=== PATIENT | female | born 1975 | race American Indian/Alaskan Native ===

== ENCOUNTER 2017-02-14 19:49 | Emergency (ER) | payer SELFPAY ==
[2017-02-14 20:09] VITALS: BP 127/84
[2017-02-14 22:57] LABS: Bilirubin,Urine NEG (Negative); Blood,Urine LG (Negative); Ketones,Urine NEG (Negative); Leukocyte Esterase,Urine NEG (Negative); Mucus,Urine FEW /HPF; Nitrite,Urine NEG (Negative); Protein,Urine <15 mg/dL mg/dL (Negative)
--- NOTE | 2017-02-18 14:57 | ED Elopement Review ---
ED Pt Elopement review - Results review Lab results: Laboratory Tests 02/14/17 22:00 Urine Color Yellow Urine Turbidity Clear Urine pH 5.0 Ur Specific [place] 1.012 Urine Protein <15 mg/dl Urine Glucose (UA) Neg Urine Ketones Neg Urine Blood Lg Urine Nitrite Neg Ur Reducing Substances Not Reportable Urine Bilirubin Neg Urine Ictotest Not Reportable Urine Urobilinogen 2.0 Ur Leukocyte Esterase Neg Urine WBC (Auto) 8.0 H Urine RBC (Auto) 47.0 U Epithel Cells (Auto) 2.0 Hyaline Casts 1 Urine Mucus Few Urine HCG, Qual Negative - Call Back decision Pt Call Back Decision: Pt to F/U with PMD
== END 2017-02-15 03:39 | disposition left against medical advice (07) ==
LOC: ED 19:49
DX: M54.5 Low back pain (principal); Z53.21 Procedure and treatment not carried out due to patient leaving prior to being seen by health care provider
CPT/HCPCS: 81001; 81025

== ENCOUNTER 2017-08-03 11:40 | Day surgery (SDC) | payer MEDICARE ==
[2017-08-03] MEDS ORDERED: NACL 0.9% 1000 ML 1,000 ML IV SCH (12:00)
--- NOTE | 2017-08-03 14:02 | Anesthesia Consultation ---
Anesthesia Consult and Med Hx Date of service: 08/03/17 - Airway Anesthetic Teeth Evaluation: Good ROM Head & Neck: Adequate Mental/Hyoid Distance: Adequate Mallampati Class: Class II Intubation Access Assessment: Probably Good - Pulmonary Exam CTA: Yes - Cardiac Exam Cardiac Exam: RRR - Pre-Operative Health Status ASA Pre-Surgery Classification: ASA3 Proposed Anesthetic Plan: General (pancreatitis/fatty liver/neuropathy upper extemity)
--- NOTE | 2017-08-03 14:02 | Anesthesia Day of Surgery ---
Anesthesia Day of Surgery - Day of Surgery Patient Examined: Yes Patient H&P Reviewed: Yes Patient is NPO: Yes
[2017-08-03] MEDS ORDERED: DIPRIVAN 10 MG/ML IV ONE ×2 (14:33→15:02)
--- NOTE | 2017-08-03 14:52 | Operative Report ---
Operative Report Operative Report: Date of procedure: 08/03/2017 Procedure: Esophagogastroduodenoscopy with multiple mucosal biopsies Attending physician: [place] Nicole MD Microfilming Document Preparer: [place] Nicole MD Indication: Patient is a 42-year-old female who presented with a history of recurrent epigastric pain and profound anemia. An upper endoscopy is done to evaluate patient so that treatment may be directed based on the findings. Consent: Informed consent was obtained after advising the patient and family regarding nature of this procedure, its indications, potential benefits as well as possible complications including but not limited to bleeding perforation and adverse reaction to medication, infection as well as other cardiopulmonary complications. An informed written and verbal consent was then obtained after due opportunity was provided for questions and answers. Monitoring: Patient was monitored continuously with pulse oximetry and electrocardiographic recordings as well as blood pressure recordings. Vital signs remained stable throughout this procedure with no untoward events. Preoperative assessment: Patient was assessed immediately prior to this procedure for capacity to tolerate monitored anesthesia care and moderate sedation as well as general anesthesia. Patient's ASA classification is 3, Mallampati class is 2, Hyomental distance is 3. Instrument: [employer] video endoscope Medications: Propofol, given intravenously in divided doses. For details please refer to anesthesia records. Description of procedure: Patient was placed in the left lateral decubitus position after achieving sedation, the endoscope was introduced into the esophagus under direct vision. It was then advanced beyond the esophagus into the stomach and then beyond the stomach into the duodenum and to the second portion of the duodenum. It was subsequently withdrawn with careful inspection of all mucosal surfaces with the following findings. Findings: Esophagus was normal however patient had an irregular Z line at 38 cm. There was a small sliding hiatal hernia measuring approximately 2 cm seen on entry into the stomach. Multiple gastric erosions particularly in the gastric body and in the antrum. Biopsies of the antrum were obtained for histopathology. The duodenum was normal to second portion. Impression: Irregular Z line Sliding hiatal hernia Multiple gastric erosions. Plan: Follow pathology report Continue treatment proton pump inhibitors. Additional steps will be taken in close outpatient follow-up.
--- NOTE | 2017-08-03 14:53 | Discharge Summary ---
Short Stay Discharge Plan Activity: advance as tolerated Weight Bearing Status: Weight Bear as Tolerated Diet: regular Follow up with: MANUEL HESS MD [Primary Care Provider] - 7 Days
--- NOTE | 2017-08-03 15:04 | Post Anesthesia Evaluation ---
- Post Anesthesia Evaluation Patient Participated: Yes Airway Patent: Yes Stable Respiratory Function: Yes Nausea/Vomiting: No Temp > 96.8F: Yes Pain Manageable: Yes Adequeate Hydration: Yes Anesthesia Complications: No
[2017-08-03 15:24] VITALS: BP 131/86
== END 2017-08-03 11:41 | disposition home or self-care (01) ==
LOC: GIO 11:40
PROVIDERS: ATTEND Internal Medicine Gastroenterology
DX: K29.50 Unspecified chronic gastritis without bleeding (principal); K31.89 Other diseases of stomach and duodenum; K25.9 Gastric ulcer, unspecified as acute or chronic, without hemorrhage or perforation; K44.9 Diaphragmatic hernia without obstruction or gangrene; F32.9 Major depressive disorder, single episode, unspecified; K86.1 Other chronic pancreatitis
CPT/HCPCS: 43239; 81025; 88305; 88342; J2704; J7030

== ENCOUNTER 2017-12-12 08:56 | Inpatient (IN) | payer MEDICARE ==
[2017-12-12] MEDS ORDERED: ATIVAN IV ONE ×2 (10:19→16:16)
[2017-12-12] MEDS ORDERED: NACL 0.9% 1000 ML 1,000 ML IV ONE ×2 (10:19→18:15)
[2017-12-12 10:22] LABS: HCG Qualitative,Urine Negative (Negative)
[2017-12-12 10:25] LABS: Bacteria,Urine 1+ /HPF (Negative); Bilirubin,Urine NEG (Negative); Blood,Urine SM (Negative); Color,Urine Yellow (Yellow); Granular Casts,Urine 12 /LPF; Mucus,Urine FEW /HPF; Urobilinogen,Urine < 2.0 mg/dL (<2.0)
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
[2017-12-12 10:31] LABS: Amphetamine Screen,Urine PRESUMPTIVE NEGATIVE; Benzodiazepines Screen,Urine PRESUMPTIVE NEGATIVE; Cannabinoid Screen,Urine PRESUMPTIVE NEGATIVE; Cocaine Screen,Urine PRESUMPTIVE NEGATIVE; Methadone Screen,Urine PRESUMPTIVE NEGATIVE; Opiate Screen,Urine PRESUMPTIVE NEGATIVE
[2017-12-12 10:43] LABS: Hematocrit 32.5 % (30.3-42.9); Hemoglobin 9.9 gm/dl (10.1-14.3); Mean Corpuscular HGB Conc 31 % (30-34); Mean Corpuscular Hemoglobin 20 pg (28-32); Mean Corpuscular Volume 66 fl (79-97); Platelet Count 257 K/mm3 (140-440); Red Blood Count 4.89 M/mm3 (3.65-5.03); Red Cell Distribution Width 28.7 % (13.2-15.2)
[2017-12-12 10:53] LABS: INR 0.94 (0.87-1.13)
[2017-12-12 11:07] LABS: BUN/Creatinine Ratio 13; Blood Urea Nitrogen 9 mg/dL (7-17); Hemolysis Index 0
[2017-12-12] MEDS ORDERED: MAGNESIUM SULFATE 2GM/50ML 2 GM/50 ML BAG IV ONE (11:12)
[2017-12-12] MEDS ORDERED: TORADOL IV ONE (11:14)
[2017-12-12 11:59] LABS: Anisocytosis 2+; Hypochromasia 2+; Total Cells Counted 100
[2017-12-12 12:00] LABS: Platelet Estimate Cons
--- NOTE | 2017-12-12 15:01 | Cat Scan Report ---
CTA CHEST: HISTORY: Elevated d-dimer, tachycardia. COMPARISON: none. TECHNIQUE: Helical CT in 1.25mm intervals following IV contrast. Pulmonary embolus protocol. Sagittal and coronal reformatted images. Rotational MIP images. FINDINGS: Contrast bolus is satisfactory. No pulmonary embolus is identified. Thyroid gland: Normal. Tracheobronchial tree: Normal. Esophagus: Normal. Heart: Normal. Pericardium: Normal. Mediastinum: Normal. Lung [place]: Normal. Pleural Spaces: Normal. Musculoskeletal: Normal. IMPRESSION: No evidence for pulmonary embolus. Unremarkable CT chest with contrast.
[2017-12-12] MEDS ORDERED: ATIVAN ONE (16:10)
[2017-12-12] MEDS ORDERED: MORPHINE IV PRN (22:09)
[2017-12-12] MEDS ORDERED: SODIUM CHLORIDE FLUSH SYRINGE 10 ML IV PRN (22:09)
[2017-12-12] MEDS ORDERED: ZOFRAN IV PRN (22:09)
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
[2017-12-12 22:44] LABS: Creatine Kinase MB 1.4 ng/mL (0.0-4.0)
[2017-12-13 04:39] LABS: Hematocrit 29.2 % (30.3-42.9); Hemoglobin 9.2 gm/dl (10.1-14.3); Mean Corpuscular HGB Conc 32 % (30-34); Mean Corpuscular Hemoglobin 21 pg (28-32); Mean Corpuscular Volume 66 fl (79-97); Platelet Count 186 K/mm3 (140-440); Red Blood Count 4.45 M/mm3 (3.65-5.03); Red Cell Distribution Width 28.2 % (13.2-15.2)
[2017-12-13 04:51] LABS: BUN/Creatinine Ratio 10; Blood Urea Nitrogen 6 mg/dL (7-17); Calcium 8.4 mg/dL (8.4-10.2); Creatine Kinase MB 2.6 ng/mL (0.0-4.0); Hemolysis Index 0
[2017-12-13 05:28] LABS: Basophils % (Manual) 0 % (0.0-1.8); Eosinophils % (Manual) 0 % (0.0-4.3); Total Cells Counted 100
[2017-12-13 05:29] LABS: Anisocytosis 3+; Hypochromasia 2+; Platelet Estimate Consistent w Auto
[2017-12-13] MEDS: NACL 0.45% 1000 ML 1,000 ML IV SCH ×2 (07:15→23:44)
[2017-12-13] MEDS ORDERED: LOVENOX SUB-Q SCH (10:00)
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
[2017-12-13] MEDS: LOPRESSOR PO SCH ×2 (12:28→22:43)
[2017-12-13] MEDS: LOVENOX SUB-Q SCH (12:30)
[2017-12-13] MEDS: SODIUM CHLORIDE FLUSH SYRINGE 10 ML IV SCH ×2 (12:32→22:43)
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
[2017-12-13] MEDS: NEURONTIN PO SCH (23:45)
[2017-12-14] MEDS: NEURONTIN PO SCH ×3 (08:05→20:00)
--- NOTE | 2017-12-14 08:48 | Progress Note ---
Assessment and Plan Assessment: Sinus tachycardia - resolved; suspect physiologic secondary to anxiety and agitation Anxiety / PTSD Elevated DDimer - chest CTA negative for PE; BLE venous duplex with no evidence of SVT/DVT Anemia Hypomagnesemia H/o hypothyroidism - thyroid profile WNL H/o mitral valve prolapse - per pt report Morbid obesity Plan: Heart rate and blood pressure improved. Continue metoprolol 50mg BID. Await echo findings. Assessment and plan reviewed with pt at bedside. The patient has been seen in conjunction with Dr. Cardenas who agrees with the assessment and plan of care. Subjective Date of service: 12/14/17 Principal diagnosis: sinus tach Interval history: The patient is resting in bed. No new complaints. Sinus rhythm with HR 80s on the monitor. Objective Last Vital Signs Temp 99.2 F 12/14/17 08:06 Pulse 77 12/14/17 08:06 Resp 20 12/14/17 08:06 BP 109/73 12/14/17 08:06 Pulse Ox 95 12/14/17 08:30 - Physical Examination General: No Apparent Distress HEENT: Positive: PERRL, Normocephaly, Mucus Membranes Moist Neck: Positive: neck supple, trachea midline Cardiac: Positive: Reg Rate and Rhythm, S1/S2 Lungs: Positive: clear to auscultation Neuro: Positive: Grossly Intact, Cranial Nerve 2-12 Intact Abdomen: Positive: Soft. Negative: Tender Skin: Positive: Clear. Negative: Rash, Wound Musculoskeletal: No Pain Extremities: Present: edema (trace BLE) - Imaging and Cardiology EKG: report reviewed, image reviewed Echo: pending - Telemetry EKG Rhythm: Sinus Rhythm - EKG Sinus rhythms and dysrhythmias: sinus tachycardia Ventricular dysrhythmias: ventricular premature com
[2017-12-14] MEDS: LOVENOX SUB-Q SCH (10:36)
[2017-12-14] MEDS: SODIUM CHLORIDE FLUSH SYRINGE 10 ML IV SCH ×2 (10:37→21:49)
[2017-12-14] MEDS: LOPRESSOR PO SCH ×2 (10:37→21:48)
[2017-12-14 11:25] LABS: BUN/Creatinine Ratio 6; Blood Urea Nitrogen 4 mg/dL (7-17); Calcium 8.9 mg/dL (8.4-10.2); Hemolysis Index 4
[2017-12-14] MEDS ORDERED: K-DUR PO NR (12:00)
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
[2017-12-14] MEDS: ZOLOFT PO SCH (15:22)
[2017-12-14] MEDS: NACL 0.45% 1000 ML 1,000 ML IV SCH (17:38)
[2017-12-14] MEDS ORDERED: REMERON PO SCH (22:00)
--- NOTE | 2017-12-15 10:44 | Progress Note ---
Assessment and Plan Assessment: Sinus tachycardia - resolved; suspect physiologic secondary to anxiety and agitation Anxiety / PTSD Elevated DDimer - chest CTA negative for PE; BLE venous duplex with no evidence of SVT/DVT Anemia Hypomagnesemia H/o hypothyroidism - thyroid profile WNL H/o mitral valve prolapse - per pt report Morbid obesity Plan: Heart rate and blood pressure improved. Continue metoprolol 50mg BID. Echo showed EF 55-60%, mild MR, mild TR. Stable cardiac status. Will sign off and see as needed. The patient has been seen in conjunction with Dr. Cardenas who agrees with the assessment and plan of care. Subjective Date of service: 12/15/17 Principal diagnosis: sinus tach Interval history: The patient is resting comfortably in bed. No new complaints. Sinus rhythm with HR 70s on the monitor. Objective Last Vital Signs Temp 97.8 F 12/15/17 08:45 Pulse 74 12/15/17 08:45 Resp 16 12/15/17 08:45 BP 148/91 12/15/17 08:45 Pulse Ox 91 12/15/17 08:45 - Physical Examination General: No Apparent Distress HEENT: Positive: PERRL, Normocephaly, Mucus Membranes Moist Neck: Positive: neck supple, trachea midline Cardiac: Positive: Reg Rate and Rhythm, S1/S2 Lungs: Positive: clear to auscultation Neuro: Positive: Grossly Intact, Cranial Nerve 2-12 Intact Abdomen: Positive: Soft. Negative: Tender Skin: Positive: Clear. Negative: Rash, Wound Musculoskeletal: No Pain Extremities: Present: edema (trace BLE) - Labs and Meds Comprehensive Metabolic Panel 12/14/17 Range/Units 10:48 Sodium 137 (137-145) mmol/L Potassium 3.5 L (3.6-5.0) mmol/L Chloride 96.1 L (98-107) mmol/L Carbon Dioxide 25 (22-30) mmol/L BUN 4 L (7-17) mg/dL Creatinine 0.7 (0.7-1.2) mg/dL Glucose 100 (65-100) mg/dL Calcium 8.9 (8.4-10.2) mg/dL - Imaging and Cardiology EKG: report reviewed, image reviewed Echo: report reviewed (12/14/17: EF 55-60%, mild MR, mild TR) - Telemetry EKG Rhythm: Sinus Rhythm - EKG Sinus rhythms and dysrhythmias: sinus tachycardia Ventricular dysrhythmias: ventricular premature com
[2017-12-15] MEDS: LOVENOX SUB-Q SCH (11:07)
[2017-12-15] MEDS: LOPRESSOR PO SCH ×2 (11:08→21:33)
[2017-12-15] MEDS: ZOLOFT PO SCH (11:08)
[2017-12-15] MEDS: NEURONTIN PO SCH ×3 (11:39→20:00)
[2017-12-15] MEDS: NACL 0.45% 1000 ML 1,000 ML IV SCH (11:39)
[2017-12-15] MEDS: SODIUM CHLORIDE FLUSH SYRINGE 10 ML IV SCH (11:40)
[2017-12-15] MEDS ORDERED: VITAMIN D 50000 UNIT PO SCH (12:45)
[2017-12-15] MEDS: FEOSOL PO SCH ×2 (14:37→20:00)
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
[2017-12-15 15:56] LABS: BUN/Creatinine Ratio 7; Blood Urea Nitrogen 5 mg/dL (7-17); Calcium 8.9 mg/dL (8.4-10.2); Hemolysis Index 2
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
[2017-12-16] MEDS: NACL 0.45% 1000 ML 1,000 ML IV SCH (07:09)
[2017-12-16] MEDS: LOVENOX SUB-Q SCH (11:46)
[2017-12-16] MEDS: LOPRESSOR PO SCH ×2 (11:46→21:57)
[2017-12-16] MEDS: ZOLOFT PO SCH (11:47)
[2017-12-16] MEDS: SODIUM CHLORIDE FLUSH SYRINGE 10 ML IV SCH (11:55)
[2017-12-16] MEDS: FEOSOL PO SCH ×3 (11:55→20:00)
[2017-12-16] MEDS: NEURONTIN PO SCH ×3 (11:55→20:00)
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
[2017-12-17] MEDS: ZOLOFT PO SCH (10:03)
[2017-12-17] MEDS: FEOSOL PO SCH ×3 (10:03→20:00)
[2017-12-17] MEDS: LOVENOX SUB-Q SCH (10:03)
[2017-12-17] MEDS: LOPRESSOR PO SCH ×2 (10:03→21:55)
[2017-12-17] MEDS: NEURONTIN PO SCH ×3 (10:03→20:00)
[2017-12-17] MEDS: SODIUM CHLORIDE FLUSH SYRINGE 10 ML IV SCH ×3 (10:04→21:53)
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
[2017-12-18] MEDS: LOPRESSOR PO SCH ×2 (09:49→21:33)
[2017-12-18] MEDS: SODIUM CHLORIDE FLUSH SYRINGE 10 ML IV SCH ×3 (09:49→21:34)
[2017-12-18] MEDS: FEOSOL PO SCH ×3 (09:49→21:33)
[2017-12-18] MEDS: LOVENOX SUB-Q SCH (09:49)
[2017-12-18] MEDS: NEURONTIN PO SCH ×3 (09:49→21:33)
[2017-12-18] MEDS: ZOLOFT PO SCH (09:49)
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
[2017-12-18] MEDS ORDERED: VITAMIN D2 PO SCH (13:19)
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
[2017-12-19 05:05] VITALS: BP 128/78
[2017-12-19] MEDS: FEOSOL PO SCH ×2 (10:42→15:00)
[2017-12-19] MEDS: NEURONTIN PO SCH ×2 (10:42→15:00)
[2017-12-19] MEDS: ZOLOFT PO SCH (10:42)
[2017-12-19] MEDS: LOPRESSOR PO SCH (10:42)
[2017-12-19] MEDS: LOVENOX SUB-Q SCH (10:42)
[2017-12-19] MEDS: SODIUM CHLORIDE FLUSH SYRINGE 10 ML IV SCH (10:44)
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
== END 2017-12-19 19:00 | disposition home or self-care (01) | DRG 881 ==
LOC: ED 08:56 → EEVIPCON 08:56 → 4A 22:09
PROVIDERS: ADMIT Internal Medicine; ATTEND Internal Medicine
DX: F32.9 Major depressive disorder, single episode, unspecified (principal); Z68.42 Body mass index [BMI] 45.0-49.9, adult; R45.850 Homicidal ideations; F41.1 Generalized anxiety disorder; R00.0 Tachycardia, unspecified; E66.01 Morbid (severe) obesity due to excess calories; E03.9 Hypothyroidism, unspecified; E83.42 Hypomagnesemia; M54.9 Dorsalgia, unspecified; F12.90 Cannabis use, unspecified, uncomplicated; F10.129 Alcohol abuse with intoxication, unspecified; G89.29 Other chronic pain; Z82.49 Family history of ischemic heart disease and other diseases of the circulatory system; Z88.1 Allergy status to other antibiotic agents; Z88.5 Allergy status to narcotic agent; Z86.79 Personal history of other diseases of the circulatory system; F43.10 Post-traumatic stress disorder, unspecified
CPT/HCPCS: 36415; 71275; 80048; 80307; 80320; 81001; 81025; 82550; 82553; 83735; 84439; 84443; 84484; 84703; 85007; 85025; 85379; 85610; 93005; 93010; 93306; 93970; G0480; J1650; J1885; J2060; J2270; J3475; J7030; Q9967